=== PATIENT | female | born 1985 | race Caucasian/White ===

== ENCOUNTER 2018-09-21 00:42 | Inpatient (IN) | payer OTHER ==
[~2018-09-21] VITALS: Ht 170.2 cm; Wt 66.0 kg
[2018-09-21] MEDS ORDERED: NEWBORN KIT ONE (00:53)
[2018-09-21] MEDS ORDERED: LIDOCAINE/PF 1%, 30ML ONE (00:53)
[2018-09-21] MEDS ORDERED: OXYTOCIN 30U/ 0.9% NaCL 500ML 500 ML ONE (00:54)
[2018-09-21] MEDS ORDERED: MISOPROSTOL 200 MCG TABLET ONE (00:54)
[2018-09-21] MEDS ORDERED: OXYTOCIN 30U/ 0.9% NaCL 500ML 500 ML IV ONE (00:59)
[2018-09-21] MEDS ORDERED: FENTANYL PF 100 MCG/2ML IVPush PRN (01:00)
[2018-09-21] MEDS ORDERED: ONDANSETRON 2MG/ML, 2ML IVPush PRN (01:00)
[2018-09-21] MEDS ORDERED: FENTANYL PF 100 MCG/2ML IV PRN (01:00)
[2018-09-21] MEDS ORDERED: TERBUTALINE 1 MG/ML, 1ML IVPush PRN (01:00)
[2018-09-21] MEDS ORDERED: CALCIUM CARBONATE 500 MG TAB.CHEW PO PRN ×2 (01:00→03:00)
[2018-09-21] MEDS ORDERED: ALUMINUM/MAG/SIMETHICONE 30 ML UDC PO PRN (01:00)
[2018-09-21 01:26] LABS: BASOPHILS # (AUTO) 0.03 x10^3/uL (0-0.1); BASOPHILS % (AUTO) 0 % (0-1); EOSINOPHILS # (AUTO) 0.05 x10^3/uL (0-0.4); EOSINOPHILS % (AUTO) 1 % (1-7); LYMPHOCYTES # (AUTO) 2.31 x10^3/uL (1-3.4); LYMPHOCYTES % (AUTO) 19 % (22-44); MD NO; MEAN CORPUSCULAR HEMOGLOBIN 27.2 pg (27.0-34.8); MEAN CORPUSCULAR HGB CONC 33.9 g/dL (32.4-35.8); MEAN CORPUSCULAR VOLUME 80.1 fL (80-100); MEAN PLATELET VOLUME 8.7 fL (7.4-10.4); MONOCYTES % (AUTO) 8 % (2-9); NEUTROPHILS # (AUTO) 8.71 x10^3/uL (1.8-6.8); NEUTROPHILS % (AUTO) 73 % (42-75); PLATELET COUNT 244 x10^3/uL (130-400); RED BLOOD COUNT 4.58 x10^6/uL (3.82-5.3); RED CELL DISTRIBUTION WIDTH 13.7 % (9.6-15.2)
[2018-09-21] MEDS ORDERED: IBUPROFEN 600 MG TABLET ONE (02:28)
[2018-09-21] MEDS: OXYTOCIN 30U/ 0.9% NaCL 500ML 500 ML IV SCH ×2 (02:46→12:34)
[2018-09-21] MEDS ORDERED: RHOGAM FROM BLOOD BANK 1 NOTE EA IM/IV ONE (03:00)
[2018-09-21] MEDS ORDERED: IBUPROFEN 200 MG TABLET PO PRN (03:00)
[2018-09-21] MEDS ORDERED: MISOPROSTOL 200 MCG TABLET PR PRN (03:00)
[2018-09-21] MEDS ORDERED: DIPH,PERTUSS(ACELL),TET VAC/PF NC IM-VACC PRN (03:00)
[2018-09-21] MEDS ORDERED: MEASLES,MUMPS&RUBELLA VACC/PF 0.5 ML SQ PRN (03:00)
[2018-09-21] MEDS ORDERED: DOCUSATE 100 MG CAPSULE PO PRN (03:00)
[2018-09-21] MEDS ORDERED: MAGNESIUM HYDROXIDE 8%, 30ML UDC PO PRN (03:00)
[2018-09-21] MEDS ORDERED: ONDANSETRON 2MG/ML, 2ML IV PRN (03:00)
[2018-09-21] MEDS ORDERED: OXYcodone IR 5MG TABLET PO PRN (03:00)
[2018-09-21] MEDS ORDERED: OXYcodone/APAP 5/325MG TABLET ONE (03:20)
[2018-09-21] MEDS: OXYcodone/APAP 5/325MG TABLET PO PRN ×3 (03:22→16:28)
[2018-09-21 04:30] VITALS: BP 103/68
[2018-09-21 07:30] VITALS: BP 101/66
[2018-09-21] MEDS: IBUPROFEN 600 MG TABLET PO PRN ×2 (07:40→13:23)
[2018-09-21] MEDS ORDERED: PRENATAL VIT/IRON/FA 1 EACH TABLET PO SCH (09:00)
[2018-09-21 09:50] LABS: BASOPHILS # (AUTO) 0.05 x10^3/uL (0-0.1); BASOPHILS % (AUTO) 0 % (0-1); EOSINOPHILS # (AUTO) 0.01 x10^3/uL (0-0.4); EOSINOPHILS % (AUTO) 0 % (1-7); LYMPHOCYTES # (AUTO) 2.19 x10^3/uL (1-3.4); LYMPHOCYTES % (AUTO) 13 % (22-44); MD SCAN; MEAN CORPUSCULAR HEMOGLOBIN 26.1 pg (27.0-34.8); MEAN CORPUSCULAR HGB CONC 32.1 g/dL (32.4-35.8); MEAN CORPUSCULAR VOLUME 81.3 fL (80-100); MEAN PLATELET VOLUME 8.4 fL (7.4-10.4); MONOCYTES # (AUTO) 1.05 x10^3/uL (0.2-0.8); MONOCYTES % (AUTO) 6 % (2-9); NEUTROPHILS # (AUTO) 13.91 x10^3/uL (1.8-6.8); NEUTROPHILS % (AUTO) 81 % (42-75); PLATELET COUNT 271 x10^3/uL (130-400); RED BLOOD COUNT 4.69 x10^6/uL (3.82-5.3); RED CELL DISTRIBUTION WIDTH 13.7 % (9.6-15.2)
[2018-09-21 12:34] VITALS: BP 119/80
[2018-09-21] MEDS ORDERED: IBUP-1222 PO (16:03)
[2018-09-21 16:15] VITALS: BP 109/71
== END 2018-09-21 18:05 | disposition home or self-care (01) | DRG 807 ==
LOC: LDOP 00:42 → LDIP 01:04 → 2NW 04:05
PROVIDERS: ADMIT Obstetrics & Gynecology Gynecology; ATTEND Obstetrics & Gynecology Gynecology
PROC: 10E0XZZ Delivery of Products of Conception, External Approach (ICD-10-PCS; principal; 2018-09-21)
PROC: 0KQM0ZZ Repair Perineum Muscle, Open Approach (ICD-10-PCS; 2018-09-21)
DX: O70.1 Second degree perineal laceration during delivery (principal); Z37.0 Single live birth; Z3A.40 40 weeks gestation of pregnancy; Z82.3 Family history of stroke; Z82.49 Family history of ischemic heart disease and other diseases of the circulatory system; Z83.3 Family history of diabetes mellitus; Z80.9 Family history of malignant neoplasm, unspecified; Z88.1 Allergy status to other antibiotic agents
CPT/HCPCS: 36415; 82803; 85025; 86850; 86900; G0378